=== PATIENT | male | born 1960 | race Caucasian/White ===

== ENCOUNTER 2019-10-26 05:48 | Inpatient (IN) ==
--- NOTE | 2019-10-11 11:33 | PAT Medication Instructions ---
Medication Instructions Date of Service October 11, 2019 Home Medications atorvastatin 40 mg PO HS cyanocobalamin (vitamin B-12) [Vitamin B-12] 1,000 mcg PO QAM epinephrine [EpiPen] 0.3 mg IM Q3H PRN escitalopram oxalate 10 mg PO QAM ferrous sulfate [iron] 325 mg PO QAM gabapentin 600 mg PO BID metformin 500 mg PO BID pantoprazole 40 mg PO BID trazodone 100 mg PO HS Continue as directed epinephrine [EpiPen] 0.3 mg IM Q3H PRN (if needed) DO NOT take the morning of surgery cyanocobalamin (vitamin B-12) [Vitamin B-12] 1,000 mcg PO QAM ferrous sulfate [iron] 325 mg PO QAM metformin 500 mg PO BID Take morning of surgery With a small sip of water, OTHERWISE NOTHING TO EAT OR DRINK AFTER MIDNIGHT: escitalopram oxalate 10 mg PO QAM gabapentin 600 mg PO BID pantoprazole 40 mg PO BID Take evening before surgery atorvastatin 40 mg PO HS gabapentin 600 mg PO BID metformin 500 mg PO BID pantoprazole 40 mg PO BID trazodone 100 mg PO HS Other Notes If you have any questions please call us at [phone] or [phone] or [phone] or [phone]
--- NOTE | 2019-10-12 09:33 | Anesthesiology Consultation ---
Date of Service October 12, 2019 Assessment & Plan (1) Encounter for pre-operative examination: - Check BSG AM DOS Chart Review Chart Review: Acceptable Risk for Surgery and Patient seen in Pre Admission Testing Teaching & Discussion Pre-Anesthesia Teaching/Discussion Notes: Instructed NPO after midnight before surgery,except medications with 15 cc of water. Medication instructions provided according to the PAT guidelines. History Surgery Operation Date: 10/26/19 07:50 Proposed Procedures p C4-C6 Anterior Cervical Discectomy Fusion, Spinal Cord Monitoring - Vikas Tobar DO Height/Weight Height: 6 ft 1 in Weight: 92.4 kg Allergies Allergy/AdvReac Type Severity Reaction Status Date / Time bee venom protein (honey bee) Allergy Unknown SOB,THROAT Verified 10/11/19 10:06 SWELLS aspirin AdvReac Unknown NAUSEA Verified 10/11/19 10:05 Medications Home Medications Medication Instructions Recorded Confirmed Last Taken atorvastatin 40 mg PO HS 10/11/19 10/11/19 Unknown cyanocobalamin (vitamin B-12) 1,000 mcg PO QAM 10/11/19 10/11/19 Unknown [Vitamin B-12] epinephrine [EpiPen] 0.3 mg IM Q3H PRN 10/11/19 10/11/19 Unknown escitalopram oxalate 10 mg PO QAM 10/11/19 10/11/19 Unknown ferrous sulfate [iron] 325 mg PO QAM 10/11/19 10/11/19 Unknown gabapentin 600 mg PO BID 10/11/19 10/11/19 Unknown metformin 500 mg PO BID 10/11/19 10/11/19 Unknown pantoprazole 40 mg PO BID 10/11/19 10/11/19 Unknown trazodone 100 mg PO HS 10/11/19 10/11/19 Unknown Past Medical History Medical History Anemia Cervical spinal stenosis Depression Diabetes mellitus, type 2 NIDDM GERD (gastroesophageal reflux disease) occasional Hyperlipidemia Exercise / Class Metabolic Activity II 4-5 Yardwork/Stairs/Walk up hill Past Surgical History Surgical History History of back surgery History of carpal tunnel surgery of left wrist History of total right knee replacement Hx of appendectomy Hx of cholecystectomy Hx of colonoscopy Hx of foot surgery LEFT Hx of shoulder surgery LEFT X2; RIGHT X3 Past Anesthesia History No Hx of Anesthesia Complications Son: "slow to wake" History of PONV No Hx of PONV and No Hx of Motion Sickness STOP BANG Total 5 Social History Smoking Status: Never smoker Do You Dip or Chew Tobacco: Yes (1 CAN/3 DAYS- ADVISED NPO AM DOS) Hx Alcohol Use: No Hx Substance Use: No Review of Systems Occasional reflux. Patient denies chest pain, shortness of breath, dyspnea on exertion, cough, wheezing, palpitations. Physical Exam Vital Signs VITALS BP 111/69 P 76 TEMP 97.6 SP02 96%RA RESP 18 PHYSICAL Decreased cervical extension 2/2 cervicalgia Full TMJ range of motion. TMD 3 finger breaths Mallampati Score 2 Dentition: upper denture, edentulous Lungs: clear throughout to auscultation Cardiac: regular rate and rhythm, no murmurs noted Spine: normal Carotid arteries: negative bruit Extremities: no edema Trimmed gaitan Testing Laboratory Results 10/12/19 09:52 PT 10.3 Seconds (9.0-12.0) 10/12/19 09:52 INR 1.0 (0.9-1.1) 10/12/19 09:52 APTT 27.9 Seconds (21.0-31.0) 10/12/19 09:52 Urine Color Dark Yellow 10/12/19 09:52 Urine Appearance Clear (Clear) 10/12/19 09:52 Urine pH 5.0 (4.5-7.5) 10/12/19 09:52 Ur Specific [place] 1.024 (1.000-1.030) 10/12/19 09:52 Urine Protein Negative (Negative) 10/12/19 09:52 Urine Glucose (UA) Negative (Negative) 10/12/19 09:52 Urine Ketones Negative (Negative) 10/12/19 09:52 Urine Nitrite Negative (Negative) 10/12/19 09:52 Ur Leukocyte Esterase Negative (Negative) 10/12/19 09:52 Blood Type A Positive 10/12/19 09:52 Antibody Screen NEGATIVE 10/12/19 09:52 10/12/19 SODIUM 139 POTASSIUM 4.4 CHLORIDE 107 CO2 29 BUN 8 CREATININE 0.99 GLUCOSE 87 HGBA1C 5.5% TSH 2.090 Electrocardiogram Date: 10/12/19 Findings: + NSR @ (70) Chest X-Ray Date: 10/12/19 Findings: + NAD Stress Test Date: 10/14/17 Type: exercise negative exercise stress ECHO for ischemia at 78% MPHR (cannot exclude ischemia at higher heart rates). Nondiagnostic stress EKG due to failure to achieve 85% MPHR (but no ischemia changes seen at workload achieved). Good functional status. 8 METS. No induced chest pain. EF 66%. Mild AR/MR.
--- NOTE | 2019-10-12 10:23 | XRay Report ---
XR chest Pre-admission PA/Lat CLINICAL HISTORY: pat preoperative evaluation COMPARISON STUDY: 03/06/2016 FINDINGS: The bones soft tissues and hemidiaphragms are normal. The cardiomediastinal silhouette is n ormal. The lungs are clear. The pulmonary vasculature is normal. IMPRESSION: Negative chest. ACT 112: Negative or not required by law. The above report was generated using voice recognition software. It may contain grammatical, syntax or spelling errors. Electronically signed by: Stan Ariza M.D. 10/12/2019 10:22 AM
[2019-10-12 10:49] LABS: Basophils # (auto) 0.02 K/uL (0-0.2); Basophils % (auto) 0.3 %; Color Urine Dark Yellow; Eosinophils # (auto) 0.15 K/uL (0-0.5); Eosinophils % (auto) 2.3 %; Hematocrit (blood only) 42.4 % (42-52); Hemoglobin 14.7 g/dL (14.0-18.0); Immature Granulocytes # (auto) 0.01 K/uL (0.00-0.02); Immature Granulocytes % (auto) 0.2 %; Lymphocytes # (auto) 1.73 K/uL (1.2-3.4); Lymphocytes % (auto) 26.6 %; Mean Corpuscular Hemoglobin 32.2 pg (25-34); Mean Corpuscular Hgb Conc 34.7 g/dL (32-36); Mean Platelet Volume 9.4 fL (7.4-10.4); Monocytes # (auto) 0.59 K/uL (0.11-0.59); Monocytes % (auto) 9.1 %; Neutrophils % (auto) 61.5 %; Platelet Count 264 K/uL (130-400); RDW Coefficient of Variation 13.2 % (11.5-14.5); RDW Standard Deviation 43.3 fL (36.4-46.3); Red Blood Count 4.56 M/uL (4.7-6.1)
[2019-10-12 10:50] LABS: Appearance Urine Clear (Clear); Bilirubin Urine Negative (Negative); Blood Urine Negative (Negative); Glucose Urine UA Negative (Negative); Ketones Urine Negative (Negative); Leukocyte Esterase Urine Negative (Negative); Nitrite Urine Negative (Negative); Protein Urine Negative (Negative); Specific Gravity Urine 1.024 (1.000-1.030); Urobilinogen Urine Negative (Negative)
[2019-10-12 11:12] LABS: Partial Thromboplastin Time 27.9 Seconds (21.0-31.0); Prothrombin Time 10.3 Seconds (9.0-12.0)
--- NOTE | 2019-10-12 17:31 | Electrocardiogram Report ---
Test Reason : Blood Pressure : / mmHG Vent. Rate : 070 BPM Atrial Rate : 070 BPM P-R Int : 190 ms QRS Dur : 080 ms QT Int : 370 ms P-R-T Axes : 044 070 051 degrees QTc Int : 399 ms Normal sinus rhythm Normal ECG When compared with ECG of 06-MAR-2016 14:23, No significant change was found Confirmed by Donald Jones ([id number]) on 10/12/2019 5:30:40 PM Referred By: Vikas Tobar Confirmed By:Chris Jones
[2019-10-26] MEDS ORDERED: GABAPENTIN 600 MG DOSE PO SCH (06:00)
[2019-10-26] MEDS ORDERED: ACETAMINOPHEN 500 MG TAB PO SCH (06:00)
[2019-10-26] MEDS ORDERED: LR 15ML/HR IV SCH (06:00)
[2019-10-26] MEDS ORDERED: CEFAZOLIN 2000MG 2,000 MG/15 ML SYR IV SCH (06:00)
[2019-10-26] MEDS ORDERED: CeleBREX 200 MG CAP PO SCH (06:00)
[2019-10-26] MEDS ORDERED: LIDOCAINE HCL 2% 2 ML VIAL/AMP(20MG/ML) INFIL ONE (06:44)
[2019-10-26] MEDS ORDERED: MIDAZOLAM HCL 1 MG/ML 2ML VIAL ONE (06:44)
[2019-10-26] MEDS ORDERED: PROPOFOL IV EMULSION 10 MG/ML 20 ML VIAL IV ONE (06:44)
[2019-10-26] MEDS ORDERED: fentaNYL citrate 100 MCG/2 ML VIAL ONE ×2 (06:44)
[2019-10-26] MEDS ORDERED: ROCURONIUM BROMIDE 10 MG/ML 5 ML VIAL ONE (06:44)
[2019-10-26] MEDS ORDERED: DEXAMETHASONE SOD INJ 4 MG/ML VIAL ONE (06:44)
[2019-10-26] MEDS ORDERED: ONDANSETRON INJ 2 MG/ML 2 ML VIAL ONE (06:44)
[2019-10-26] MEDS ORDERED: SUCCINYLCHOLINE CHLORIDE 20 MG/ML 10 ML VIAL ONE (06:44)
[2019-10-26] MEDS ORDERED: SODIUM CHLORIDE 0.9% INJ 10 ML VIAL ONE (06:51)
[2019-10-26] MEDS ORDERED: PROPOFOL IV EMULSION 10 MG/ML 100 ML VIAL IV ONE (07:05)
[2019-10-26] MEDS ORDERED: BACITRACIN INJ 50,000 UNIT VIAL ONE (07:06)
--- NOTE | 2019-10-26 07:22 | History & Physical Bridge Note ---
Date of Service October 26, 2019 History & Physical Bridge Note I have examined the patient, reviewed the History & Physical and in the interval since the performance of the History & Physical I have noted the following changes of clinical significance: no changes noted
--- NOTE | 2019-10-26 07:24 | History & Physical Report ---
Date of Service October 26, 2019 Assessment & Plan (1) Cervical stenosis of spinal canal: C4-C6 anterior cervical discectomy fusion Present on Admission?: Yes History of Present Illness Chief Complaint: Neck and bilateral arm pain Primary Care Provider: Petra Brambila This is a 5-year-old male presents with chronic persistent neck and arm pain after failing extensive course of nonoperative care is here for surgical invention. Allergies Allergy/AdvReac Type Severity Reaction Status Date / Time bee venom protein (honey bee) Allergy Severe SOB,THROAT Verified 10/26/19 06:29 SWELLS aspirin AdvReac Mild NAUSEA Verified 10/26/19 06:29 Home Medications Home Medications Medication Instructions Recorded Confirmed Type atorvastatin 40 mg PO HS 10/11/19 10/26/19 History cyanocobalamin (vitamin B-12) 1,000 mcg PO QAM 10/11/19 10/26/19 History [Vitamin B-12] epinephrine [EpiPen] 0.3 mg IM Q3H PRN 10/11/19 10/26/19 History escitalopram oxalate 10 mg PO QAM 10/11/19 10/26/19 History ferrous sulfate [iron] 325 mg PO QAM 10/11/19 10/26/19 History gabapentin 600 mg PO BID 10/11/19 10/26/19 History metformin 500 mg PO BID 10/11/19 10/26/19 History pantoprazole 40 mg PO BID 10/11/19 10/26/19 History trazodone 100 mg PO HS 10/11/19 10/26/19 History Past Med/Surg History Medical History Anemia Cervical spinal stenosis Depression Diabetes mellitus, type 2 NIDDM GERD (gastroesophageal reflux disease) occasional Hyperlipidemia Surgical History History of back surgery History of carpal tunnel surgery of left wrist History of total right knee replacement Hx of appendectomy Hx of cholecystectomy Hx of colonoscopy Hx of foot surgery LEFT Hx of shoulder surgery LEFT X2; RIGHT X3 Social History Preferred Language: Burkinan Communication Ability: Effective Beliefs That Will Affect Care: None Current Living Situation: Spouse Feels Safe at Home: Yes Safety Concerns: Feels Safe At This Time Smoking Status: Never smoker Do You Dip or Chew Tobacco: Yes (1 CAN/3 DAYS- ADVISED NPO AM DOS) ; Second Hand Exposure: No ; Hx Alcohol Use: No Hx Substance Use: No Physical Exam Physical Exam: Patient is alert and oriented neurologically intact. Results & Data Vital Signs (Past 12 Hours) Vital Signs Temp Pulse Resp BP Pulse Ox 10/26/19 06:32 36.6 C 83 20 165/83 H 95
[2019-10-26] MEDS ORDERED: ATROPINE SULFATE 0.1 MG/ML 10ML SYR IV PRN (07:27)
[2019-10-26] MEDS ORDERED: ePHEDrine sulfate 50 MG/ML AMP IV PRN (07:27)
[2019-10-26] MEDS ORDERED: ONDANSETRON INJ 2 MG/ML 2 ML VIAL IV PRN ×2 (07:27→11:27)
[2019-10-26] MEDS ORDERED: HYDROmorphone INJ 1 MG/ML SYRINGE IV PRN ×2 (07:27→11:27)
[2019-10-26] MEDS ORDERED: KETAMINE HCL INJ 50 MG/ML 10 ML VIAL ONE (08:04)
[2019-10-26] MEDS ORDERED: HYDROmorphone INJ 2 MG/ML SYR/VIAL ONE (08:28)
[2019-10-26] MEDS ORDERED: GLYCOPYRROLATE 0.2 MG/ML VIAL ONE (09:01)
[2019-10-26] MEDS ORDERED: NEOSTIGMINE METHYLSULFATE 1 MG/ML 10ML VIAL ONE (09:01)
[2019-10-26] MEDS ORDERED: FLOSEAL HEMOSTATIC MATRIX 10ML TOP ONE (09:02)
--- NOTE | 2019-10-26 09:19 | Operative Report ---
Post Operative Report Pre & Post Diagnosis Operation Date: 10/26/19 07:45 Pre-Op Diagnosis: Spinal Stenosis, Cervical Region Post-Op Diagnosis: Spinal Stenosis, Cervical Region I identified the patient and participated in the time-out.: Yes Procedure Operation Date: 10/26/19 07:45 Actual Procedures #1 anterior cervical discectomy with bilateral foraminotomies for 5, C5-6. #2 anterior cervical arthrodesis C4-5 C5-6. #3 placement of titanium 8 mm cage filled with DBM at C4-5 and C5-6. #4 application of 5 complete screws across C4-5 C5-6. Surgeon Vikas Tobar, DO Valuation Consultant None Estimated Blood Loss 30 Findings Consistent with Post-Op Diagnosis Specimens None Indications This is a 59-year-old male well-known to me the presents with above-mentioned diagnosis after failing extensive course of nonoperative care is here for surgical intervention. Description of Procedure Patient was met with identified informed consent obtained. Patient was then taken to the operative suite underwent intubation placed in a supine position Marco table head Flanagan mophead sewer. All bony prominences well-padded eyes inspected to ensure no external pressure placed upon. This point the anterior cervical spine was prepped and draped in a sterile fashion. Sharp dissection with the assistance of bipolar electrocautery was performed down to and exposing the anterior cervical spine from C3-4 to C6. A self-retaining retractor was placed. Then performed a complete discectomy of C4-5 out to the uncovertebral joints bilaterally. Royal distracting pins were lysed assist in visualization. I removed all posterior annular fibers and longitudinal ligament perform bilateral foraminotomies. Endplates were then burred to subcortical bleeding bone and an 8 mm titanium Spira cage filled with DBM tapped in position. The distracting apparatus was removed and approached the C5-6 level. Again complete discectomy performed out to the uncovertebral joints bilaterally. Royal distracting pins again utilized. I then removed all posterior annular fibers and longitudinal ligament perform bilateral foraminotomies. Endplates were then burred to subcortical bleeding bone and a 8 mm Spira cage filled with DBM tapped in position. Distracting apparatus was removed and a coulter plate and screws applied with the assistance of fluoroscopy. The incision was then copiously irrigated explored to ensure no damage to surrounding structures remaining bleeding. 10 round WILLIAN drain inserted. The incision was then closed with 1 Vicryl in the fascia 2-0 Vicryl subcutaneously and 4 Monocryl for final skin closure. Steri-Strip sterile dressings placed. Patient will continue to PACU stable condition. Please note spinal cord monitoring was utilized that the procedure no changes noted. I attest to the content of the Intraoperative Record and any orders documented therein. Any exceptions are noted below.
--- NOTE | 2019-10-26 10:05 | Fluoroscopy Report ---
FL cervical 2-3V HISTORY: 59 years-old Male ACDF C4-C6 chronic neck pain COMPARISON: None TECHNIQUE: 2 views of the cervical spine were obtained utilizing 8.6 seconds fluoroscopy time FINDINGS: Anterior plate and screw fusion with discectomy changes at C4-C6. Alignment appears satisfactory on t hese images and the hardware appears intact. No acute fracture or subluxation identified. Multilevel spondylitic spurring with facet arthrosis. There is suggestion of likely congenital bony fusion at th e C3-C4 level. Surgical drainage catheter is noted with expected postsurgical soft tissue swelling an d deep tissue air. IMPRESSION: Fluoroscopic assistance as above. Please see operative report for further details. ACT 112: Negative or not required by law. The above report was generated using voice recognition software. It may contain grammatical, syntax o r spelling errors. Electronically signed by: Jayme Avery M.D. 10/26/2019 10:03 AM
[2019-10-26] MEDS: fentaNYL citrate 100 MCG/2 ML VIAL IV PRN ×2 (10:13→10:19)
--- NOTE | 2019-10-26 10:14 | Anesthesiology Progress Note ---
Date of Service October 26, 2019 Anesthesia Post Procedure Vital Signs Vital Signs: Temp Pulse Pulse Resp BP Pulse Ox 10/26/19 10:05 78 18 153/85 H 97 10/26/19 09:55 75 17 147/85 H 99 10/26/19 09:45 76 16 148/85 H 99 10/26/19 09:36 36.2 C L 84 12 153/88 H 99 10/26/19 06:32 36.6 C 83 20 165/83 H 95 Transfer of Care Handoff Completed per policy Notes Mental Status: alert / awake / arousable and participated in evaluation Patient Amnestic to Procedure: Yes Nausea / Vomiting: adequately controlled Pain: adequately controlled Airway Patency, RR, SpO2: stable & adequate BP & HR: stable & adequate Hydration State: stable & adequate Anesthetic Complications: no major complications apparent and Pt Satisfied with anesthetic care
[2019-10-26] MEDS ORDERED: MAGNESIUM HYDROXIDE SUSP 30 ML UDC PO PRN (11:27)
[2019-10-26] MEDS ORDERED: DO NOT ADMINISTER PNEUMOCOCCAL VACCINE PRN (11:27)
[2019-10-26] MEDS ORDERED: ONDANSETRON 4 MG OD TAB PO PRN (11:27)
[2019-10-26] MEDS ORDERED: NALOXONE HCL 0.4 MG/1 ML VIAL/CARP IV PRN (11:27)
[2019-10-26] MEDS ORDERED: METOCLOPRAMIDE HCL INJ 5 MG/ML 2 ML VIAL IV PRN (11:27)
[2019-10-26] MEDS ORDERED: PROMETHAZINE HCL 12.5 MG in SODIUM CHLORIDE 0.9% 50 ML IV PRN (11:27)
[2019-10-26] MEDS ORDERED: EPINEPHRINE ADULT AUTO-INJECT 0.3 MG SYR IM PRN (11:27)
[2019-10-26] MEDS ORDERED: RACEPINEPHRINE 2.25% NEBU SOLN 0.5 ML VIAL INH PRN (11:27)
[2019-10-26] MEDS ORDERED: DO NOT ADMINISTER FLU VACCINE PRN (11:27)
[2019-10-26] MEDS ORDERED: ALUMINUM/MAGNESIUM SUSP 30 ML UDC PO PRN (11:27)
[2019-10-26] MEDS ORDERED: FAMOTIDINE 20 MG TAB PO PRN (11:27)
[2019-10-26] MEDS ORDERED: ACETAMINOPHEN 500 MG TAB PO PRN (11:27)
[2019-10-26] MEDS ORDERED: DEXAMETHASONE SOD PHOSPHATE 8 MG in SYRINGE 0 ML IV PRN (11:27)
[2019-10-26] MEDS ORDERED: HYDROmorphone INJ 0.5 MG/0.5 ML SYR IV PRN (11:27)
[2019-10-26] MEDS ORDERED: TRAMADOL HCL 50 MG TABLET PO PRN (11:27)
[2019-10-26] MEDS ORDERED: LORazepam 0.5 MG TAB PO PRN (11:27)
[2019-10-26] MEDS ORDERED: ACETAMINOPHEN 1,000 MG/100 ML VIAL IV PRN (11:27)
[2019-10-26] MEDS ORDERED: SOD PHOSPHATE/SOD BIPHOSPHATE ENEMA 132 ML BTL PR PRN (11:27)
[2019-10-26] MEDS ORDERED: LORazepam 0.5 MG/1 ML VIAL IV PRN (11:27)
--- NOTE | 2019-10-26 11:52 | Pharmacy Report ---
Glycemic Control Consultation - Date of Service October 26, 2019 - Scope Scope: Glycemic Pharmacist consulted by Dr Tobar on 10/26 for glycemic control and to write orders per [facility] inpatient glycemic control protocol - Objective Weight: 92.4 kg Accuchecks BSG (last 24hrs): 10/26/19 10/26/19 10/26/19 06:10 09:40 11:33 POC Glucose 112 H 106 H 120 H - Recent Pertinent Medications Outpatient Anti-diabetic Regimen: * metformin 500 mg bid * A1c = 5.5 % 10/12/19 Risk Factors for Insulin Resistance: * Steroids: dex 8 mg iv x 1 * Recent Surgery: POD 0 * Diet: T2DM - Assessment & Plan Assessment & Plan: ASSESSMENT: * 59 year old male, now s/p surgery. Pharmacy consulted for glycemic management. * Patient received IV dexamethasone therefore anticipate steroid induced hyperglycemia. Will utilize basal/bolus insulin postop PLAN FOR INPATIENT GLYCEMIC CONTROL: * Pt is maintained on oral antidiabetic agents as an outpatient * Oral agents are not recommended for inpatient use d/t drug interactions, changing PO intake, and difficulty titrating for acute hyper/hypoglycemia. ADA recommends re-initiating outpatient oral agents 1-2 days prior to discharge if/when appropriate if they were held on admission. * Will hold oral agents for admission and utilize SQ basal bolus insulin regimen which is the recommended regimen for inpatient glycemic control. * Will initiate weight based insulin dosing for insulin amelia patient and titrate based on BSG trends. * Basal insulin * NPH 18 units x 1 - to help cover steroids (~0.2 units/kg) * Bolus insulin * NovoLog per scale ACHS or Q6hrs while NPO * Goal Range: Low 110 mg/dL - High 140 mg/dL * Correction Factor: 25 mg/dL/unit * Nutritional / Prandial insulin per carb ratio of 1 unit per 7 grams CHO consumed * Please note that the plan above was derived based on current level of insulin resistance and hospital stress. These recommendations are appropriate for inpatient admission only. Plan of care upon discharge will need to be reassessed to avoid potential outpatient hypo/hyperglycemia. Thank you.
[2019-10-26] MEDS ORDERED: PHARMACY GLYCEMIC MGMT CONSULT PRN (11:55)
[2019-10-26] MEDS ORDERED: GLUCOSE 40% GEL 15 GM TUBE PO PRN (12:00)
[2019-10-26] MEDS ORDERED: DEXTROSE 50% 50 ML SYRINGE IV PRN (12:00)
[2019-10-26] MEDS ORDERED: GLUCAGON FOR INJ 1 MG VIAL IM PRN (12:00)
[2019-10-26] MEDS ORDERED: GLUCOSE 10 TABS/TUBE PO PRN (12:00)
[2019-10-26] MEDS ORDERED: CARBOHYDRATES FOR HYPOGLYCEMIA PO PRN (12:00)
[2019-10-26] MEDS: SODIUM CHLORIDE 0.9% 1000ML 1,000 ML IV SCH ×2 (12:20→20:27)
[2019-10-26] MEDS ORDERED: NovoLIN-N (NPH) PER UNIT CHARGE SQ ONE (12:30)
[2019-10-26] MEDS: INSULIN ASPART 100 UNITS/ML 3 ML PEN SC SCH ×3 (13:57→20:26)
[2019-10-26] MEDS: OXYCODONE HCL IR 5 MG TAB (IMMEDIATE RELEASE) PO PRN ×2 (16:43→20:31)
[2019-10-26] MEDS: CEFAZOLIN 2000MG 2,000 MG/15 ML SYR IV SCH (16:44)
[2019-10-26] MEDS: GABAPENTIN 300 MG CAP PO SCH (20:24)
[2019-10-26] MEDS: PANTOprazole 40 MG TAB PO SCH (20:25)
[2019-10-26] MEDS ORDERED: DOCUSATE SODIUM/SENNA 50/8.6MG TAB PO SCH (21:00)
[2019-10-26] MEDS ORDERED: TRAZODONE HCL 100 MG TAB PO SCH (21:00)
[2019-10-26] MEDS ORDERED: ATORVASTATIN 40 MG TAB PO SCH (21:00)
[2019-10-27] MEDS: CEFAZOLIN 2000MG 2,000 MG/15 ML SYR IV SCH (00:13)
[2019-10-27] MEDS: OXYCODONE HCL IR 5 MG TAB (IMMEDIATE RELEASE) PO PRN ×3 (00:19→08:56)
[2019-10-27] MEDS: INSULIN ASPART 100 UNITS/ML 3 ML PEN SC SCH ×3 (00:22→08:59)
[2019-10-27] MEDS: PANTOprazole 40 MG TAB PO SCH (04:17)
[2019-10-27 05:35] LABS: Hematocrit (blood only) 37.8 % (42-52); Hemoglobin 12.7 g/dL (14.0-18.0); Immature Granulocytes # (auto) 0.03 K/uL (0.00-0.02); Immature Granulocytes % (auto) 0.3 %; Lymphocytes # (auto) 1.35 K/uL (1.2-3.4); Lymphocytes % (auto) 13.2 %; Mean Corpuscular Hemoglobin 30.5 pg (25-34); Mean Corpuscular Hgb Conc 33.6 g/dL (32-36); Mean Corpuscular Volume 90.9 fL (80-100); Monocytes # (auto) 0.92 K/uL (0.11-0.59); Neutrophils # (auto) 7.96 K/uL (1.4-6.5); Neutrophils % (auto) 77.5 %; Platelet Count 234 K/uL (130-400); RDW Coefficient of Variation 12.7 % (11.5-14.5); RDW Standard Deviation 40.9 fL (36.4-46.3); Red Blood Count 4.16 M/uL (4.7-6.1); White Blood Count 10.26 K/uL (4.8-10.8)
[2019-10-27] MEDS ORDERED: POLYETHYLENE (MIRALAX) 17 GM PACK PO SCH (06:00)
[2019-10-27 06:03] LABS: BUN Creatinine Ratio 6.8 (10-20); Calcium 8.4 mg/dl (8.5-10.1); Creatinine Clr Calc Pharmacy 95.5 ml/min; Est GFR (African American) 103.1; Est GFR (Non-African American) 88.9; Potassium 3.7 mmol/L (3.5-5.1)
--- NOTE | 2019-10-27 07:57 | Anesthesiology Progress Note ---
Date of Service October 27, 2019 Anesthesia Post Procedure Vital Signs Vital Signs: Temp Pulse Pulse Pulse Pulse Resp BP 10/27/19 06:03 36.6 C 76 18 142/82 H 10/27/19 04:10 36.5 C 87 16 129/80 10/27/19 03:40 83 16 10/27/19 02:10 36.5 C 92 H 16 148/74 H 10/27/19 00:09 36.6 C 97 H 16 125/74 10/26/19 23:10 89 14 10/26/19 22:10 36.5 C 103 H 16 136/75 10/26/19 20:12 36.6 C 98 H 18 144/76 H 10/26/19 19:33 104 H 18 10/26/19 19:17 36.8 C 111 H 18 167/93 H 10/26/19 17:57 114 H 16 10/26/19 16:15 106 H 16 10/26/19 16:00 111 H 16 10/26/19 15:03 36.7 C 121 H 18 10/26/19 13:55 104 H 16 10/26/19 12:55 36.8 C 97 H 16 10/26/19 12:05 36.7 C 88 16 10/26/19 11:56 94 H 18 10/26/19 11:37 36.6 C 82 14 10/26/19 11:00 36.5 C 71 16 10/26/19 10:25 36.7 C 60 14 10/26/19 10:15 36.7 C 71 16 10/26/19 10:05 78 18 10/26/19 09:55 75 17 10/26/19 09:45 76 16 10/26/19 09:36 36.2 C L 84 12 BP Pulse Ox 10/27/19 06:03 97 10/27/19 04:10 97 10/27/19 03:40 96 10/27/19 02:10 96 10/27/19 00:09 96 10/26/19 23:10 97 10/26/19 22:10 95 10/26/19 20:12 96 10/26/19 19:33 97 10/26/19 19:17 98 10/26/19 17:57 123/77 96 10/26/19 16:15 96 10/26/19 16:00 125/80 97 02/13/20 15:03 154/99 H 97 10/26/19 13:55 145/91 H 96 10/26/19 12:55 147/97 H 99 10/26/19 12:05 149/94 H 98 10/26/19 11:56 97 10/26/19 11:37 141/91 H 97 10/26/19 11:00 157/86 H 98 10/26/19 10:25 146/83 H 95 10/26/19 10:15 150/82 H 98 10/26/19 10:05 153/85 H 97 10/26/19 09:55 147/85 H 99 10/26/19 09:45 148/85 H 99 10/26/19 09:36 153/88 H 99 Pain Intensity Neck: Pain Intensity: 5 Notes Mental Status: alert / awake / arousable Patient Amnestic to Procedure: Yes Nausea / Vomiting: adequately controlled Pain: adequately controlled and improving with treatment Airway Patency, RR, SpO2: stable & adequate BP & HR: stable & adequate Hydration State: stable & adequate Anesthetic Complications: no major complications apparent and Pt Satisfied with anesthetic care
--- NOTE | 2019-10-27 08:22 | Discharge Summary ---
Date of Service October 27, 2019 Admission HPI Per Admitting Provider This is a 5-year-old male presents with chronic persistent neck and arm pain after failing extensive course of nonoperative care is here for surgical invention. Principal Diagnosis Cervical spinal stenosis with radiculopathy Discharge Data Allergies Allergy/AdvReac Type Severity Reaction Status Date / Time bee venom protein (honey bee) Allergy Severe SOB,THROAT Verified 10/26/19 06:29 SWELLS aspirin AdvReac Mild NAUSEA Verified 10/26/19 06:29 Procedures Performed Operation Date: 10/26/19 07:45 Actual Procedures p C4-C6 Anterior Cervical Discectomy and Fusion with Spinal Cord Monitoring(Not Applicable) - Vikas Tobar DO Ordered Studies 10/26/19 07:45 FL cervical 2-3V Routine FL fluoroscopy <1hr Routine Hospital Course (1) Cervical stenosis of spinal canal: Patient underwent anterior cervical discectomy fusion tolerated well se [facility] orthopedic for possibly. Postop day 1 he was up and ambulating swallowing well no hoarseness arm symptoms markedly improved. WILLIAN drain decreasing appropriately. Strength intact. Subsequent discharge home. Discharge orders instructions from the chart for further review. Total Time Total Time Spent Total Time Spent (In Minutes): 20 minutes Discharge Plan Discharge Items Patient Disposition: Home - Self-Care Reason For Visit: Spinal Stenosis, Cervical Region Discharge Diagnosis: Cervical spinal stenosis with radiculopathy Activity: As commented below Non-emergency contact: Primary Care Provider Call non-emergency contact if: you have any medication questions Follow-up/Referrals: Petra Brambila PA-C [Primary Care Provider] - Diet: Regular Addtl Attending Provider Instructions: ACTIVITY RECOMMENDATIONS: SELF CARE INSTRUCTIONS AFTER CERVICAL FUSIONS 1. No smoking. Smoking drastically decreases the chance of a solid fusion. 2. No bending, lifting more than 5 pounds, or twisting (roll like a log when turning in bed). 3. You may shower 3 days after surgery. Thoroughly dry wound. Do not soak in the tub. 4. Cervical collar: Must be worn at all times including sleeping. You may remove the brace only to bath, eat and if you are sitting in a recliner. 5. Please walk as much as you can for exercise. Gradually increase the distance that you walk as your endurance increases. SPECIAL CARE INSTRUCTIONS: VERY IMPORTANT TO READ AND REVIEW A. Do not take any anti-inflammatory medications (i.e. Indocin, Advil, Aspirin, Naprosyn, Aleve, Motrin, etc.) as these may inhibit the chance of a solid fusion. Tylenol is okay to take. B. Your surgical incision has been closed with a cosmetic suture under the skin that will dissolve in about 6 weeks. In 14 days, you can use a pair of clean scissors and cut the suture that is left outside of the skin at the ends of your incision. C. Complications are uncommon, but please contact us if you have any signs or symptoms of: 1. wound infection (fever higher than 102.5 degrees F, redness, separation of wound, drainage, or increasing pain from the incision) 2. blood clots in legs (pain, swelling, redness and warmth in legs) 3. urinary tract infection (fever higher than 102.5 degrees, burning upon urination or increased frequency of urination) 4. nerve problems (inability to walk on your toes or heels, numbness, loss of bowel or bladder control) 5. any other symptoms that concern you. D. Please call the office at if you have any concerns or questions about your operation or recovery. MANAGING PAIN AFTER SPINAL SURGERY 1. Narcotic medication is intended for short-term use and will be provided for surgical pain. Surgical pain usually lasts for a period of 4-6 weeks. Narcotic medication includes Percocet, Vicodin, Darvocet, Tylenol #3 or Lortab. 2. Longer-term pain is more appropriately treated with non-narcotic medication such as Tylenol ES. 3. Muscle spasm is not appropriately treated with narcotics. Muscle relaxers such as Soma, Flexeril or Skelaxin can be used along with Tylenol ES. 4. Remember that we all live with some "aches and pains". This is not unusual or uncommon after an injury or as we get older. 5. We will provide appropriate medication within the normal guidelines of their prescribed use. We will also be very cautious and aware of potential abuse and extended duration of patients' medication needs. 6. Please allow 2-3 days to process refills. Prescriptions will not be mailed but must be picked up at the office. FOLLOW UP VISIT: Keep your scheduled follow-up appointment. Any questions, please call the office at . Pending Studies at Discharge: No Stand-Alone Forms: My [facility], Smoking Cessation Medications and DC Order Prescriptions: New tramadol 50 mg tablet 50 mg PO Q6H PRN (Reason: pain, moderate) Qty: 10 RF: 0 oxycodone 5 mg tablet 5 mg PO Q6H PRN (Reason: pain, severe) Qty: 10 RF: 0 Continued atorvastatin 40 mg Tablet 40 mg PO HS RF: 0 metformin 500 mg Tablet 500 mg PO BID RF: 0 cyanocobalamin (vitamin B-12) [Vitamin B-12] 1,000 mcg Tablet 1,000 mcg PO QAM RF: 0 trazodone 100 mg Tablet 100 mg PO HS RF: 0 pantoprazole 40 mg Tablet,Delayed Release (Dr/Ec) 40 mg PO BID RF: 0 gabapentin 300 mg Capsule 600 mg PO BID RF: 0 epinephrine [EpiPen] 0.3 mg/0.3 mL Auto-Injector 0.3 mg IM Q3H PRN (Reason: Anaphylaxis) RF: 0 escitalopram oxalate 10 mg Tablet 10 mg PO QAM RF: 0 ferrous sulfate [iron] 325 mg (65 mg iron) Tablet 325 mg PO QAM RF: 0 Discharge Orders: Discharge Order (Routine); Ordered 10/27/19 Ordered By: Vikas Tobar Admission Data Admit Date/Time: 10/26/19 09:46 Attending Provider: Vikas Tobar Admit Provider: Vikas Tobar Primary Care Provider: Petra Brambila
[2019-10-27] MEDS: GABAPENTIN 300 MG CAP PO SCH (08:54)
[2019-10-27] MEDS ORDERED: ESCITALOPRAM OXALATE 10 MG TAB PO SCH (09:00)
[2019-10-27] MEDS ORDERED: CYANOCOBALAMIN 500 MCG TABLET (VITAMIN B-12) PO SCH (09:00)
[2019-10-28] MEDS ORDERED: bisacodyL 10 MG SUPP PR PRN (09:20)
== END 2019-10-27 11:27 | disposition home or self-care (01) | DRG 473 ==
LOC: PAT 05:48 → 3E 09:46